=== PATIENT | male | born 1960 | race Caucasian/White ===

== ENCOUNTER 2020-02-13 13:58 | Emergency (ER) | payer OTHER, SELFPAY ==
[2020-02-13 14:08] VITALS: BP 143/46; PULSE 96; RESP 12; TEMP 36.1; O2SAT 99
[2020-02-13] MEDS: TETANUS,DIPHTHERIA,AC PERTUSSIS ADULT (0.5 ML) BOOSTRIX IM (15:01)
--- NOTE | 2020-02-13 16:02 | ED.GENADULT ---
HPI - General Adult General Chief complaint: Wound/Laceration Stated complaint: L hand lac Time Seen by Provider: 02/13/20 14:07 Source: patient Mode of arrival: ambulatory Limitations: no limitations History of Present Illness HPI narrative: Patient is a 60-year-old male who presents with laceration of the left pinky finger that occurred just prior to arrival patient was using a knife cut the finger while using a clean kitchen knife patient on arrival to emergency department notes mild aching pain worse with activity and movement patient notes his tetanus is not up-to-date. Related Data Allergies Allergy/AdvReac Type Severity Reaction Status Date / Time No Known Allergies Allergy Verified 02/13/20 14:37 Review of Systems Review of Systems: All systems reviewed & are unremarkable except as noted in HPI and below PMFSH Social History Social History (Updated 02/13/20 @ 16:04 by Bryn Lee PA-C) Smoking status: Never smoker Exam Narrative: Exam Narrative: GENERAL: Well-appearing, well-nourished, and in no acute distress. HEAD: Normocephalic, atraumatic. EYES: PERRLA and EOMI. ENT: Nares clear, no rhinorrhea or epistaxis. Mucous membranes moist. EXTREMITIES: 1 cm laceration palmar aspect left pinky finger proximal phalanx patient with inability to flex the digit with likely flexor tendon injury SKIN: Warm, dry, no rash. NEURO: No focal deficits. Alert and oriented x3. Neurovascularly intact. Capillary refill less than 2 seconds PSYCH: Normal mood and affect. Course Course Emergency Course: Patient in the room aware of case findings treatment plan and diagnosis had the wound closed was given tetanus will follow with hand surgery this week Consultations Consultation #1: Discussed case with hand surgeon who will follow patient in clinic this week Date: 02/13/20 Time: 16:05 Vital Signs Vital signs: Vital Signs Temperature 97.0 F L 02/13/20 14:08 Pulse Rate 96 02/13/20 14:08 Respiratory Rate 12 02/13/20 14:08 Blood Pressure 143/46 H 02/13/20 14:08 Pulse Oximetry 99 02/13/20 14:08 Temperature 97.0 F L 02/13/20 14:08 Pulse Rate 96 02/13/20 14:08 Respiratory Rate 12 02/13/20 14:08 Blood Pressure 143/46 H 02/13/20 14:08 Pulse Oximetry 99 02/13/20 14:08 Procedures Laceration Laceration 1: Date: 02/13/20 Time: 16:05 Site: upper extremity Side (If applicable): left Size (cm): 1 Description: linear Depth: involves tendon Local Anesthetic: lidocaine 1% Pre-repair: wound explored, irrigated and irrigated extensively ====== Skin Level ====== Skin layer closed with: nylon Size (cm): 4-0 Number of sutures: 2 ====== Subcutaneous Layer ====== ====== Muscle Layer ====== ====== Tendon Layer ====== Dressing: Wound was prepped with soap scrub pressure irrigation 1% lidocaine local 4-0 nylon used to close the wound 2 sutures placed neurovascularly intact pre and post procedure. Nonadhesive antibiotic ointment 4 x 4 and [place] with metal finger splint was placed post procedure Medical Decision Making MDM Narrative Medical decision making narrative: Patient had closure of the wound will follow with hand surgery this week for tendon evaluation Vital Signs Vital Signs: Vital Signs Temperature 97.0 F L 02/13/20 14:08 Pulse Rate 96 02/13/20 14:08 Respiratory Rate 12 02/13/20 14:08 Blood Pressure 143/46 H 02/13/20 14:08 Pulse Oximetry 99 02/13/20 14:08 Temperature 97.0 F L 02/13/20 14:08 Pulse Rate 96 02/13/20 14:08 Respiratory Rate 12 02/13/20 14:08 Blood Pressure 143/46 H 02/13/20 14:08 Pulse Oximetry 99 02/13/20 14:08 Discharge Plan Discharge Clinical Impression: Finger laceration, Flexor tendon laceration, finger, open wound Patient Disposition: Home, Self-Care Condition: Stable Instructions: Antibiotic Form, Laceration (ED)
[2020-02-13 16:15] VITALS: BP 143/85; PULSE 86; RESP 18; O2SAT 96
== END 2020-02-13 16:20 | disposition home or self-care (01) ==
PROVIDERS: Emergency Provider Emergency Medicine
DX: S61.217A Laceration without foreign body of left little finger without damage to nail, initial encounter (principal); W26.0XXA Contact with knife, initial encounter; Z23 Encounter for immunization
CPT/HCPCS: 12001; 90471; 90715; 99282

== ENCOUNTER 2020-12-11 22:25 | Emergency (ER) | payer OTHER, SELFPAY ==
[2020-12-11 22:29] VITALS: BP 152/87; PULSE 97; RESP 19; TEMP 36.3; O2SAT 97
--- NOTE | 2020-12-11 23:47 | ECG_ITS ---
Measurements Intervals [place] Rate: 88 P: 60 MI: 162 QRS: 7 QRSD: 94 T: 50 QT: 343 QTc: 416 Interpretive Statements SINUS RHYTHM WITH SINUS ARRHYTHMIA BASELINE WANDER- I, II NORMAL ECG Electronically Signed On 12-12-2020 6:43:24 CDT by Vern Briseno D.O.
[2020-12-12] VITALS: BP 146/84; PULSE 90; RESP 16; TEMP 37.5; O2SAT 95
[2020-12-12 00:13] LABS: Basophils Percent Auto 0.5 % (0.2-1.2); Eosinophils Absolute Auto 0.1 K/mm3 (0-0.3); Eosinophils Percent Auto 1.8 % (0-4.4); Hematocrit 47.3 % (42.0-52.0); Hemoglobin 15.5 g/dL (14.0-18.0); Immature Granulocyte Absolute 0.01 K/mm3 (0.00-0.031); Immature Granulocyte Percent A 0.1 % (0-0.5); Lymphocytes Absolute Auto 2.29 K/mm3 (0.9-3.2); Lymphocytes Percent Auto 29.7 % (18.3-44.2); Mean Corpuscular HGB Conc 32.8 g/dl (32-36); Mean Corpuscular Hemoglobin 31.5 pg (26-34); Mean Corpuscular Volume 96.1 fl (80-100); Mean Platelet Volume 9.2 fl (7.4-10.4); Monocytes Absolute Auto 0.8 K/mm3 (0.1-0.6); Monocytes Percent Auto 10.8 % (2.6-8.5); Neutrophils Absolute Auto 4.4 K/mm3 (1.3-6.7); Neutrophils Percent Auto 57.1 % (45.5-73.1); Platelet Count Result 241 k/mm3 (150-375); Red Blood Count 4.92 M/mm3 (4.6-6.20); Red Cell Distribution Width 13.3 % (11.5-14.5); White Blood Count 7.7 K/mm3 (4.5-10.0)
[2020-12-12 00:29] LABS: Anion Gap 8 mmol/L (8-16); Blood Urea Nitrogen 18 mg/dL (9-20); Carbon Dioxide 24 mmol/L (22-30); Chloride 104 mmol/L (98-107); Estimated CRCL calculation 77 ml/min; Estimated Glomerular Filt Rate > 60; Glucose 122 mg/dL (65-110); Potassium 3.7 mmol/L (3.4-5.0); Sodium 136 mmol/L (137-145)
--- NOTE | 2020-12-12 00:36 | ED.ANXIETY ---
HPI - Anxiety General Chief Complaint: Anxiety Stated Complaint: Anxiety Time Seen by Provider: 12/11/20 23:43 Source: patient Mode of arrival: ambulatory Limitations: no limitations History of Present Illness HPI narrative: 60-year-old with no major medical problems here with complaints of unable to sleep feeling very anxious for last 3 days. He denies having any chest pain or shortness of breath. He states that he is not under any stress. No history of alcohol or drug use. Patient states that he does not have any primary doctor. MD complaint: anxiety, heart racing and shortness of breath Onset (ago): day(s) (3) Symptoms: palpitations Severity: moderate Quality: intermittent Place: home History of similar episodes: No Provoking factors: none known Relieving factors: nothing Exacerbating factors: nothing Associated symptoms: chest pain and diaphoresis Related Data Allergies Allergy/AdvReac Type Severity Reaction Status Date / Time No Known Allergies Allergy Verified 12/12/20 00:04 Review of Systems Review of Systems: All systems reviewed & are unremarkable except as noted in HPI and below Constitutional: Constitutional: Reports no additional constitutional complaints Eyes: Eyes: Reports no additional eye complaints Cardiovascular: Cardiovascular: Reports as per HPI and Reports chest pain Respiratory: Respiratory: Reports dyspnea Musculoskeletal: Musculoskeletal: Reports no additional musculoskeletal complaints Neurologic: Reports system reviewed and no additional complaints, except as documented Psychiatric: Psychiatric: Reports anxiety PMFSH Social History Social History Smoking status: Never smoker Gender identity (if verbalized by the patient): Male Exam Narrative: GENERAL: Well-appearing, well-nourished, and in no acute distress. HEAD: Normocephalic, atraumatic. EYES: PERRLA and EOMI. NECK: Supple. CHEST: Clear to auscultation. No respiratory distress. HEART: Regular rate and rhythm. No murmur heard. Normal peripheral pulses. ABDOMEN: Soft, nontender, nondistended, normal active bowel sounds. EXTREMITIES: Normal range of motion. No edema. SKIN: Warm, dry, no rash. NEURO: No focal deficits. Alert and oriented x3. PSYCH: Normal mood and affect. Course Course Emergency Course: Patient presently is feeling much better did not want any medication for his anxiety. Will benefit of the doubt I did order CBC chemistry and EKG which all seem to be within normal limits. Advised him to take medication as prescribed for anxiety recommended him to follow-up with the primary doctor. Vital Signs Vital signs: Vital Signs Temperature 36.3 C L 12/11/20 22:29 Pulse Rate 97 12/11/20 22:29 Respiratory Rate 19 12/11/20 22:29 Blood Pressure 152/87 H 12/11/20 22:29 Pulse Oximetry 97 12/11/20 22:29 Temperature 37.5 C 12/12/20 00:00 Pulse Rate 90 12/12/20 00:00 Respiratory Rate 16 12/12/20 00:00 Blood Pressure 146/84 H 12/12/20 00:00 Pulse Oximetry 95 12/12/20 00:00 MDM - Anxiety Lab Data Result diagrams: 12/12/20 00:06 12/12/20 00:06 Labs: Lab Results 12/12/20 12/12/20 Range/Units 00:06 00:06 WBC 7.7 (4.5-10.0) K/mm3 RBC 4.92 (4.6-6.20) M/mm3 Hgb 15.5 (14.0-18.0) g/dL Hct 47.3 (42.0-52.0) % MCV 96.1 (80-100) fl MCH 31.5 (26-34) pg MCHC 32.8 (32-36) g/dl RDW 13.3 (11.5-14.5) % Plt Count 241 (150-375) k/mm3 MPV 9.2 (7.4-10.4) fl Immature Gran % (Auto) 0.1 (0-0.5) % Neut % (Auto) 57.1 (45.5-73.1) % Lymph % (Auto) 29.7 (18.3-44.2) % [place] % (Auto) 10.8 H (2.6-8.5) % Eos % (Auto) 1.8 (0-4.4) % Baso % (Auto) 0.5 (0.2-1.2) % Lymph # (Auto) 2.29 (0.9-3.2) K/mm3 [place] # (Auto) 0.8 H (0.1-0.6) K/mm3 Eos # (Auto) 0.1 (0-0.3) K/mm3 Baso # (Auto) 0.0 (0.0-0.1) K/mm3 Abs Immat Gran (auto) 0.01 (0.00-0.031) K
[2020-12-12 00:38] LABS: Troponin I < 0.012 ng/mL (0.000-0.034)
[2020-12-12 00:42] VITALS: BP 131/91; PULSE 80; RESP 14; O2SAT 97
== END 2020-12-12 00:52 | disposition home or self-care (01) ==
PROVIDERS: Emergency Provider Family Medicine
DX: F41.9 Anxiety disorder, unspecified (principal)
CPT/HCPCS: 36415; 80048; 84484; 85025; 93005; 99284

== ENCOUNTER 2021-03-25 00:36 | Day surgery (SDC) | payer OTHER, SELFPAY ==
[2021-03-07 13:33] VITALS: BMI 28.3
[2021-03-25 09:26] VITALS: BP 136/87; PULSE 99; RESP 18; TEMP 36.1; O2SAT 95
[2021-03-25] MEDS: LACTATED RINGERS 1,000 ML 150 ML IV CONT (09:28)
--- NOTE | 2021-03-25 10:12 | PM.HPGS ---
History of Present Illness History of Present Illness Consent: Risks, benefits, and alternatives have been discussed and questions answered. Patient agrees to proceed with procedure. Chief complaint: positive cologuard Narrative: Leonardo Adkins is a 61 year old male here for first colonoscopy, had + cologuard Review of Systems Constitutional: Constitutional: Denies headache(s) and Denies weakness Eyes: Eyes: Denies blurry vision ENT: Reports Normal hearing present, Denies headache(s) and Denies neck pain Cardiovascular: Cardiovascular: Denies chest pain and Denies dyspnea Respiratory: Respiratory: Denies dyspnea Gastrointestinal: Gastrointestinal: Reports no additional gastrointestinal complaints Genitourinary: Genitourinary: Denies dysuria Musculoskeletal: Musculoskeletal: Denies neck pain Integumentary/Breasts: Skin/Breast: Denies dry skin Neurologic: Reports Normal hearing present, Denies headache(s) and Denies weakness Psychiatric: Psychiatric: Denies anxiety Endocrine: Endocrine: Denies change in body appearance Hematologic/Lymphatic: Hematologic/Lymphatic: Denies easy bleeding Allergic/Immunologic: Allergic/Immunologic: Denies urticaria PMFSH Past Medical History Medical History (Updated 03/25/21 @ 10:13 by Raymon Garza MD) Obesity Positive colorectal cancer screening using Cologuard test Social History Social History (Updated 02/04/21 @ 07:48 by Kiara Morales) Social History: Smoking status: Never smoker Second hand tobacco smoke exposure: No Alcohol intake: never Substance use: current Substance use type: marijuana Living arrangements: with family Gender identity (if verbalized by the patient): Male Sexual Orientation (if Verbalized by the Patient): Straight or Heterosexual Spiritual care concerns: No Meds Home Medications and Allergies Home Medications Medication Instructions Recorded Confirmed Type metoprolol tartrate 50 mg PO DAILY 03/07/21 03/07/21 History Allergies Allergy/AdvReac Type Severity Reaction Status Date / Time No Known Allergies Allergy Verified 03/25/21 09:25 Vital Signs Vital Signs - 24 hr 03/25/21 09:26 Temperature 96.9 F L Pulse Rate 99 Respiratory Rate 18 Blood Pressure 136/87 Pulse Oximetry 95 Exam Const: General: comfortable and no acute distress HENMT: General nose exam: Normal nares present Eyes: General: appearance normal, both eyes and all related structures Neck: Neck: no JVD Resp: Auscultation: clear to auscultation bilaterally Cardio: Rate: regular rate Rhythm: regular rhythm GI: Inspection: non-distended GI Palp: Yes Soft to palpation Skin: General skin exam: normal color Neuro: General: gait normal Speech: normal speech Extrem: General: normal to inspection Psych: Mental Status: mental status grossly normal Assessment and Plan Assessment and plan (1) Positive colorectal cancer screening using Cologuard test: Code(s): R19.5 - Other fecal abnormalities Status: Acute Assessment and Plan: colonoscopy
--- NOTE | 2021-03-25 10:27 | P.PNAN_ITS ---
Anes - Initial Pre Proc Eval Procedure: Operation Date: 03/25/21 10:45 Proposed Procedures p Colonoscopy - Raymon Garza MD Date/Time: 03/25/21 10:27 Surgeon: Raymon Garza MD Pre Op Diagnosis: positive cologuard Patient Data Age: 61 Gender: M Height: 1.7 m Weight: 80.3 kg Last Vital Signs Temp 96.9 F L 03/25/21 09:26 Pulse 99 03/25/21 09:26 Resp 18 03/25/21 09:26 BP 136/87 03/25/21 09:26 Pulse Ox 95 03/25/21 09:26 Allergies Allergy/AdvReac Type Severity Reaction Status Date / Time No Known Allergies Allergy Verified 03/25/21 09:25 Home Medications Medication Instructions Recorded Confirmed Type metoprolol tartrate 50 mg PO DAILY 03/07/21 03/07/21 History Patient hx anesthesia problems: none Family hx anesthesia problems: none Results Review: All pre-operative results and documents have been reviewed as part of the pre-operative evaluation. [facility] Past Medical History Medical History (Updated 03/25/21 @ 10:13 by Raymon Garza MD) Obesity Positive colorectal cancer screening using Cologuard test Social History Social History (Updated 02/04/21 @ 07:48 by Kiara Morales) Social History: Smoking status: Never smoker Second hand tobacco smoke exposure: No Alcohol intake: never Substance use: current Substance use type: marijuana Living arrangements: with family Gender identity (if verbalized by the patient): Male Sexual Orientation (if Verbalized by the Patient): Straight or Heterosexual Spiritual care concerns: No Anes - Eval Final PreProcedure Day of Procedure 03/25/21 10:27 Patient weight: normal Heart: regular rate and rhythm Lungs: clear to auscultation Airway: Mallampati scale class II Neurological: alert and oriented Last oral intake: >/= 8 hours ASA classification: II Emergent: no Anesthetic plan: proceed Anesthesia type and monitoring: general GIVS and standard monitoring Results Review: All pre-operative results and documents have been reviewed as part of the pre-operative evaluation. Informed Consent: The patient's anesthetic plan and its attendant risks and benefits were discussed with the patient/family/POA. Questions were solicited and answers provided to the satisfaction of the patient/family/POA.
--- NOTE | 2021-03-25 10:29 | SUR.OPER ---
Resolution Clip Lot: [id number] Exp: 2023-10-10
[2021-03-25 10:39] VITALS: BP 118/78; PULSE 89; RESP 22; O2SAT 96
[2021-03-25 10:49] VITALS: BP 120/86; PULSE 88; RESP 20; O2SAT 100
[2021-03-25 10:59] VITALS: BP 135/84; PULSE 85; RESP 20; O2SAT 100
== END 2021-03-25 11:25 | disposition home or self-care (01) ==
PROVIDERS: PCP Family Medicine; Visit Provider Internal Medicine Gastroenterology
PROC: 0DJD8ZZ Inspection of Lower Intestinal Tract, Via Natural or Artificial Opening Endoscopic (ICD-10-PCS; CPT 45378; principal; 2021-03-25 10:45)
DX: R19.5 Other fecal abnormalities (principal); D12.2 Benign neoplasm of ascending colon; D12.5 Benign neoplasm of sigmoid colon; K57.30 Diverticulosis of large intestine without perforation or abscess without bleeding; K64.8 Other hemorrhoids; F12.90 Cannabis use, unspecified, uncomplicated
CPT/HCPCS: 45385; 88305; J2704; J7120

== ENCOUNTER 2024-07-17 06:53 | Day surgery (SDC) | payer OTHER, SELFPAY ==
[2024-03-29 09:27] VITALS: BMI 29.9
[2024-06-27 12:06] VITALS: BMI 28.6
--- OUTSIDE RECORDS SUMMARY | 2024-07-17 07:08 | XMS_ITS | Clinical Summary ---
Author Organization [facility] Address [address] [place] [address] Care Team Providers Care Quality Compliance Coordinator Name Role Phone Unavailable Primary Care Provider Unavailabl e Immunizations Immunization Administration Dates Next Due Covid-19 Vaccine, Vector-nr, Rs-ad26, Pf, 0.5 Ml ([employer]) 12/06/2020 Social History Tobacco Use Types Packs/Day Years Used Date Smoking Tobacco: Never Assessed Sex and Gender Information Value Date Recorded Sex Assigned at Not on file Legal Sex Male 12:26 PM CDT Gender Identity Not on file Sexual Orientation Not on file Plan of Treatment Health Maintenance Due Date Last Done Comments Hepatitis C Virus (HCV) Screening 1960 Colonoscopy 01/04/2005 Colorectal Cancer Screening 01/04/2005 Cologuard 01/04/2010 Immunochemical Fecal Occult Blood 01/04/2010 Pneumococcal Immunization (5 0+ years) (1 of 1 - PCV) 01/04/2010 Zoster Immunization (1 of 2) 01/04/2010 PSA Discussion 01/04/2015 Influenza Immunization (#1) 2023 SARS-COV-2 Immunization (2 - season) 2023 12/06/2020 Respiratory Syncytial Virus (RSV) Immunization (Adult) (1 - 1-dose 75+ series) 01/04/2035 DTaP/Tdap/Td Immunization Discontinued 02/13/2020 TdaP Immunization Completed 02/13/2020 Hepatitis B Immunization Aged Out No longer eligible based on patient's age to complete this topic Meningococcal Immunization (ACWY) Aged Out No longer eligible based on patient's age to complete this topic Pneumococcal Immunization Combined Aged Out No longer eligible based on patient's age to complete this topic Rotavirus Immunization Aged Out No lo nger eligible based on patient's age to complete this topic
[2024-07-17 07:25] VITALS: BP 134/86; PULSE 89; RESP 18; TEMP 36.8; O2SAT 96
--- NOTE | 2024-07-17 07:27 | WPDANESEPPF ---
Anes - Initial Pre Proc Eval Procedure: Operation Date: 07/17/24 08:30 Proposed Procedures p Diagnostic Colonoscopy - Alli Rolon MD Date/Time: 07/17/24 07:27 Surgeon: Alil Rolon MD Pre Op Diagnosis: History of Polyps Patient Data Age: 64 Gender: M Height: 1.7 m Weight: 80.4 kg Allergies Allergy/AdvReac Type Severity Reaction Status Date / Time No Known Allergies Allergy Verified 07/17/24 07:26 Home Medications ?Medication ?Instructions ?Recorded ?Confirmed ?Type No Home Medications 06/27/24 07/17/24 History Patient hx anesthesia problems: none Family hx anesthesia problems: none Results Review: All pre-operative results and documents have been reviewed as part of the pre-operative evaluation. [facility] Past Medical History Medical History Tubular adenoma of colon Positive colorectal cancer screening using Cologuard test Obesity Surgical History Surgical History History of colonoscopy with polypectomy 2020, repeat in 3 years Family History Family History Other Hypertension Social History Social History Social History: Smoking status: Never smoker Second hand tobacco smoke exposure: No Alcohol intake: never Substance use: current Substance use type: marijuana Other substance usage details: DAILY Living arrangements: with family Occupation/Education: retired Gender identity (if verbalized by the patient): Male Sexual Orientation (if Verbalized by the Patient): Straight or Heterosexual Spiritual care concerns: No Anes - Eval Final PreProcedure Day of Procedure 07/17/24 07:27 Patient weight: overweight Heart: regular rate and rhythm Lungs: clear to auscultation Airway: Mallampati scale class II Neurological: alert and oriented Last oral intake: >/= 8 hours ASA classification: II Emergent: no Anesthetic plan: proceed Anesthesia type and monitoring: general GIVS and standard monitoring Results Review: All pre-operative results and documents have been reviewed as part of the pre-operative evaluation. Informed Consent: The patient's anesthetic plan and its attendant risks and benefits were discussed with the patient/family/POA. Questions were solicited and answers provided to the satisfaction of the patient/family/POA.
[2024-07-17] MEDS: LACTATED RINGERS 1,000 ML 150 ML IV CONT (07:32)
--- NOTE | 2024-07-17 08:46 | PM.IMHP ---
H&P: HPI History of Present Illness Date/Time: 07/17/24 08:46 Chief Complaint: History of colon polyps Narrative: The patient has a history of colonic polyps, the last colonoscopy was in February 2021. There was a tubular adenoma and sessile serrated adenoma. Review of Systems Review of Systems: All systems reviewed & are unremarkable except as noted in HPI and below PMFSH Past Medical History Medical History Tubular adenoma of colon Positive colorectal cancer screening using Cologuard test Obesity Surgical History Surgical History History of colonoscopy with polypectomy 2020, repeat in 3 years Family History Family History Other Hypertension Social History Social History Social History: Smoking status: Never smoker Second hand tobacco smoke exposure: No Alcohol intake: never Substance use: current Substance use type: marijuana Other substance usage details: DAILY Living arrangements: with family Occupation/Education: retired Gender identity (if verbalized by the patient): Male Sexual Orientation (if Verbalized by the Patient): Straight or Heterosexual Spiritual care concerns: No Meds Home Medications and Allergies Home Medications ?Medication ?Instructions ?Recorded ?Confirmed ?Type No Home Medications 06/27/24 07/17/24 History Allergies Allergy/AdvReac Type Severity Reaction Status Date / Time No Known Allergies Allergy Verified 07/17/24 07:26 Vital Signs Vital Signs - 24 hr 07/17/24 07:25 Temperature 98.3 F Pulse Rate 89 Respiratory Rate 18 Blood Pressure 134/86 Pulse Oximetry 96 Oxygen Delivery Room Air Exam Const: General: cooperative and healthy appearing Resp: Effort & Inspection: normal respiratory effort and able to speak in complete sentences Auscultation: clear to auscultation bilaterally Cardio: Rate: regular rate Rhythm: regular rhythm GI: Inspection: normal to inspection GI Palp: No No hepatosplenomegaly present Auscultation: normal bowel sounds Rectal Exam: deferred Skin: General skin exam: normal color Psych: Appearance: grossly normal Mental Status: mental status grossly normal Assessment and Plan Assessment and plan (1) Colon polyps: Code(s): K63.5 - Polyp of colon Status: Acute Assessment and Plan: The patient is deemed a good candidat
[2024-07-17 09:10] VITALS: BP 134/85; PULSE 79; RESP 18; O2SAT 99
[2024-07-17 09:20] VITALS: BP 127/84; PULSE 71; RESP 15; O2SAT 99
[2024-07-17 09:30] VITALS: BP 134/83; PULSE 70; RESP 15; O2SAT 99
--- NOTE | 2024-07-17 09:38 | WPDANESPN ---
Anes - Prog Note Post-Op Date/Time: 07/17/24 09:38 Cardiovascular status: normal Respiratory status: normal Airway patency: baseline Mental status: baseline Post-Op hydration status: normal Vital Signs: Last Vital Signs Temp 36.8 C 07/17/24 07:25 Pulse 70 07/17/24 09:30 Resp 15 07/17/24 09:30 BP 134/83 07/17/24 09:30 Pulse Ox 99 07/17/24 09:30 O2 Del Method Room Air 07/17/24 09:30 Pain Score (VAS): 0/10 I/O: Intake & Output 07/16/24 07/17/24 07/17/24 23:59 07:59 15:59 Intake Total 800 Balance 800 Patient Feedback: Patient satisfied with anesthetic care.
== END 2024-07-17 09:40 | disposition home or self-care (01) ==
PROVIDERS: PCP Family Medicine; Referring Provider Internal Medicine Gastroenterology; Visit Provider Internal Medicine Gastroenterology
PROC: 0DJD8ZZ Inspection of Lower Intestinal Tract, Via Natural or Artificial Opening Endoscopic (ICD-10-PCS; CPT 45378; principal; 2024-07-17 08:30)
DX: Z12.11 Encounter for screening for malignant neoplasm of colon (principal); K57.30 Diverticulosis of large intestine without perforation or abscess without bleeding; K64.8 Other hemorrhoids; Z86.0100 Personal history of colon polyps, unspecified
CPT/HCPCS: 45378